=== PATIENT | female | born 1985 | race Caucasian/White ===

== ENCOUNTER → 2017-11-09 | Day surgery (SDC) | payer BC ==
[~2017-11-09] VITALS: Ht 175.3 cm; Wt 80.0 kg
[~2017-11-09] MED LIST: CHLORHEXIDINE GLUCONATE 2 % 1 PACK (2 CLOTHS) TOPICAL PRN; DEXAMETHASONE SOD PHOS 4 MG/ML VIAL IV ONE; DO NOT ADM ANY ANTICOAGULANT DRUGS PRN; INSULIN HUMAN REGULAR 1,000 UNITS/10 ML VIAL SQ PRN; LACTATED RINGER'S 1000 ML INJ 1,000 ML IV ONE; LEVO200T4 PO; LIDOCAINE HCL 1% PF 5 ML SYRINGE OTHER ONE; LIOT5TAB3 PO; METOPROLOL TARTRATE 25 MG TAB PO PRN; ONDANSETRON HCL 4 MG/2 ML VIAL IV ONE; PERC5TAB12 PO; POVIDONE IODINE 5% (ANTISEPSIS KIT) 4 APPLICATIONS EACH NARE PRN; PROPOFOL 200 MG/20 ML AMP IV ONE; SODIUM CHLORID 0.9% 500 ML IV PRN; SUCCINYLCHOLINE CHLORIDE 100 MG/5 ML SYRINGE IV PUSH ONE; VALT500T PO
[2017-11-09] MEDS: LACTATED RINGER'S 1000 ML IV PRN ×2 (09:55→11:25)
[2017-11-09 10:28] LABS: AUTOMATED NEUTROPHIL # 6.7 TH/MM3 (1.8-7.7); BASOPHIL # 0.1 TH/MM3 (0-0.2); BASOPHIL % 0.6 % (0.0-2.0); EOSINOPHIL # 0.1 TH/MM3 (0-0.4); EOSINOPHIL % 0.9 % (0.0-4.0); HEMATOCRIT 30.6 % (35.0-46.0); HEMOGLOBIN 10.5 GM/DL (11.6-15.3); LYMPHOCYTE # 1.2 TH/MM3 (1.0-4.8); MEAN CELL VOLUME 85.4 FL (80.0-100.0); MEAN CORPUSCULAR HEMOGLOBIN 29.1 PG (27.0-34.0); MEAN CORPUSCULAR HGB CONC 34.1 % (32.0-36.0); MEAN PLATELET VOLUME 9.1 FL (7.0-11.0); MONO % 4.3 % (0.0-8.0); MONOCYTE # 0.4 TH/MM3 (0-0.9); NEUT % 80.2 % (16.0-70.0); PLATELET COUNT 155 TH/MM3 (150-450); RED BLOOD COUNT 3.59 MIL/MM3 (4.00-5.30); RED CELL DISTRIBUTION WIDTH 13.7 % (11.6-17.2); WHITE BLOOD COUNT 8.3 TH/MM3 (4.0-11.0)
--- NOTE | 2017-11-09 13:09 | PD.OP ---
Operative Report Date of Surgery: Nov 09, 2017 Preoperative Diagnosis: (1) Incomplete Postoperative Diagnosis: (1) Incomplete Procedure: d&c with suction Anesthesia: general Surgeon: Desmond Kenyon Screener And Blender(s): Desmond Mauricio MD Nov 09, 2017 13:09
--- NOTE | 2017-11-09 13:12 | HHI.DCPOC ---
Discharge Care Plan Diagnosis: (1) Incomplete Report Symptoms to Your Doctor -Temperature above 100.5 degrees -Redness, of incision or excessive or foul smelling drainage -Unusual pain or calf pain -Increased vaginal bleeding -Painful or difficulty urinating -Feelings of extreme sadness or anxiety after 2 weeks Goals to Promote Your Health * To prevent worsening of your condition and complications * To maintain your health at the optimal level Directions to Meet Your Goals Take your medications as prescribed Follow your dietary instruction Follow activity as directed Ensure plenty of rest for recovery Drink fluids for hydration Keep your appointments as scheduled Take your immunizations and boosters as scheduled If your symptoms worsen call your PCP, if no PCP go to Urgent Care Center or Emergency Room Smoking is Dangerous to Your Health. Avoid second hand smoke Call the 24-hour crisis hotline for domestic abuse at Desmond Kenyon MD Nov 09, 2017 13:12
[2017-11-09 13:24] LABS: HEMOGLOBIN 8.1 GM/DL (11.6-15.3)
--- NOTE | 2017-11-09 13:28 | MP ---
cc: Desmond Kenyon MD DATE OF OPERATION: 11/09/2017 DATE OF PROCEDURE: Dilatation and curettage with suction curette. PREOPERATIVE DIAGNOSIS: Incomplete . POSTOPERATIVE DIAGNOSIS: Incomplete . SURGEON: Desmond Kenyon MD ESTIMATED BLOOD LOSS: Less than 30 mL. COMPLICATIONS: None. ANESTHESIA: General. SPECIMENS: Products of conception. PROCEDURE IN DETAIL: After informed consent, patient was taken to the operating room, where she was placed under general anesthesia, placed in supine position, legs in the candy cane stirrups. Abdomen was prepped and draped in normal sterile fashion. Bladder was drained with a red Schaefer catheter. After timeout was taken for the procedure and everyone agreed, a speculum was placed in the vagina. There was a lot of clot and products of conception coming through the os, which was open about 2 cm. We removed that clot and some of the debris and products of conception. Then, a suction curette was passed through the fundus where a significant amount of products of conception was evacuated. A sharp curette was passed in all 4 quadrants until all the products of conception were off the uterine wall, and the suction curette was passed one last time. There was no active bleeding. The tenaculum was removed from the 12 o'clock portion of the cervix. The patient tolerated the procedure well. She was extubated and taken to the recovery room in stable condition. Lap and instrument counts were correct. Desmond Kenyon MD JWM/SB , 01:15 PM , 01:28 PM
--- NOTE | 2017-11-09 13:35 | MH ---
cc: Desmond Kenyon MD DATE OF ADMISSION: 11/09/2017 HISTORY OF PRESENT ILLNESS: This 32-year-old 2, para 1, who came in for an OB visit last week, was supposed to be 11 weeks, was found to have an 8-week fetus with no cardiac activity. The patient went out of town this weekend, came back on Thursday, had a large amount of bleeding and clots. She passed that and bleeding and clots discontinued. The patient called me. She was instructed to come in early in the morning for her visit. The patient did not call again, but continued to have heavy bleeding and cramping over the night, had some syncopal episodes x 4 at home. She showed up in the office pale, pulse was 100, blood pressure was 90/50. The patient was immediately sent to the hospital for IV hydration and a CBC. CBC revealed a hemoglobin of 10. We proceeded with a 12:00 D and C. PAST MEDICAL HISTORY: None. PAST SURGICAL HISTORY: She had a cone biopsy and a vaginal . MEDICATIONS: Levothyroxine. ALLERGIES: NONE. GYNECOLOGIC HISTORY: Significant for HSV. REVIEW OF SYSTEMS: Only significant for this syncopal episode along with heavy vaginal bleeding. PHYSICAL EXAMINATION: VITAL SIGNS: Stable and afebrile. NECK: Thyroid palpates normally. HEART: Regular rate and rhythm without murmur or gallop. LUNGS: Clear to auscultation bilaterally. ABDOMEN: Soft, nontender, nondistended. Uterus is 8-week size. PELVIC: Os was open. Products of conception were being prolapsed through the cervix. LOWER EXTREMITIES: No edema. IMPRESSION: At this time, is incomplete . The patient had syncopal episodes. The patient will undergo dilatation and curettage with suction. She is aware risks, benefits and alternatives, did sign consent. MD JESSIKA Sosa/EVA , 01:18 PM , 01:35 PM
[2017-11-09 15:11] VITALS: BP 102/65; PULSE 72; RESP 18; TEMP 97.4; O2SAT 100
== END | disposition home or self-care (01) ==
LOC: HSDC 09:21
PROVIDERS: ATTEND Obstetrics & Gynecology
DX: O02.1 Missed abortion (principal); Z3A.11 11 weeks gestation of pregnancy
CPT/HCPCS: 01965; 59820; 85014; 85018; 85025; 86850; 86900; 86901; 88305; J0330; J1100; J2405; J3010; J7120

== ENCOUNTER 2018-06-09 19:53 | Inpatient (IN) ==
[2018-06-09] MEDS ORDERED: Morphine Inj 4 MG/ML Vial IV.PUSH PRN (21:56)
[2018-06-09] MEDS ORDERED: Acetaminophen 325 MG Tablet PO PRN (21:56)
[2018-06-09] MEDS ORDERED: LORazepam 1 MG Tablet PO PRN (21:56)
[2018-06-09] MEDS ORDERED: Zolpidem Tartrate 5 MG Tablet PO PRN (22:04)
--- NOTE | 2018-06-09 22:16 | P.HPOB ---
History of Present Illness Service: 16 week loss Primary Care Physician: No Primary Care Physician Chief Complaint: 16 week loss History of Present Illness: 32 yo who came to the office at 16 weeks and she had US that revealed 16 week fetus without cardiac activity. 5 days later she came with her and once again US revealed same thing.Patient has no bleeding or cramps. she has consented for misoprostol induction and is aware of risk of D&C Weeks Gestation:: 16 Total # of Miscarriage(s): 1 Total # of Abortions (Spontaneous & Elective): 0 - Inpatient Certification I certify that the inpatient services were ordered in accordance with Medicare regulations governing the order. This includes certification that hospital inpatient services are reasonable and necessary and in the case of services not specified as inpatient-only under 42 CFR 419.22(n), that they are appropriately provided as inpatient services in accordance to with the 2-midnight benchmark under 43 CFR 412.3(e) Estimated Total Length of Stay (Days): 2 Plans for Post Hospital Care: Home Review of Systems All other systems reviewed negative except as stated in HPI PMFSH - History History Provided By: Patient - Medical / Surgical Hx Neg / Unobtainable Medical Problems Denied: Yes Surgical History: No Previous Surgery (D&C for miscarriage 7 months ago) - Social History I have reviewed the patient's Social History: Yes - Tobacco History Second Hand Smoke Exposure: No Tobacco Use In Past 30 Days: No Smoking Status: Never smoker Medications and Allergies Active Medications: Active Medications Acetaminophen (Tylenol) 650 mg PO Q4H PRN PRN Reason: FEVER Lactated Ringer's (Lr 1000 Ml Inj) 1,000 mls @ 125 mls/hr IV.CONT .Q8H ALLEN Stop: 06/10/18 05:59 Lorazepam (Ativan) 1 mg PO TID PRN PRN Reason: ANXIETY Misoprostol (Cytotec) 400 mcg VAGINAL Q4H ALLEN Stop: 06/11/18 02:01 Morphine Sulfate (Morphine Inj) 2 mg IV.PUSH Q2H PRN PRN Reason: Pain Scale 1 - 4 Ondansetron HCl (Zofran Odt) 4 mg PO Q6H PRN PRN Reason: NAUSEA OR VOMITING Sodium Chloride (Ns Flush) 2 ml IV.FLUSH BID ALLEN Sodium Chloride (Ns Flush) 2 ml IV.FLUSH UNSCH PRN PRN Reason: FLUSH AFTER USING IV ACCESS Zolpidem Tartrate (Ambien) 5 mg PO ONCE PRN PRN Reason: INSOMNIA Allergies Allergy/AdvReac Type Severity Reaction Status Date / Time No Known Allergies Allergy Uncoded 11/22/13 11:39 Exam Vital signs: Intake & Output 06/09/18 06/09/18 06/10/18 06:59 18:59 06:59 Weight 81.647 kg - Constitutional no acute distress - Routine HEENT Exam Head: Present: normocephalic - Routine Neck Exam Present: full ROM - Routine Respiratory Exam Present: CTA bilaterally - Routine Cardiovascular Exam Present: RRR - Routine Abdominal Exam Present: soft, normoactive bowel sounds - Routine Exam Patient deferred: external exam Perineum Description: Intact - Routine Extremities Exam Present: full ROM - Routine Skin Exam Present: intact - Routine Neurological Exam Present: alert, oriented X3 - Additional findings Additional findings: cervix is closed Caprini VTE Risk Assessment Caprini VTE Risk Assessment: No/Low Risk (score <= 1) Caprini Risk Assessment Model: Point Value = 1 Point Value = 2 Point Value = 3 Point Value = 5 Age 41-60 Minor surgery BMI > 25 kg/m2 Swollen legs Varicose veins or History of unexplained or recurrent spontaneous Oral contraceptives or hormone replacement Sepsis (< 1 month) Serious lung disease, including pneumonia (< 1 month) Abnormal pulmonary function Acute myocardial infarction Congestive heart failure (< 1 month) History of inflammatory bowel disease Medical patient at bed rest Age 61-74 Arthroscopic surgery Major open surgery (> 45 min) Laparoscopic surgery (> 45 min) Malignancy Confined to bed (> 72 hours) Immobilizing plaster cast Central venous access Age >= 75 History of VTE Family history of VTE Factor V Leiden Prothrombin [id number] Lupus anticoagulant Anticardiolipin antibodies Elevated serum homocysteine Heparin-induced thrombocytopenia Other congenital or acquired thrombophilia Stroke (< 1 month) Elective arthroplasty Hip, pelvis, or leg fracture Acute spinal cord injury (< 1 month) Prophylaxis Regimen: Total Risk Factor Score Risk Level Prophylaxis Regimen 0-1 Low Early ambulation 2 Moderate Order ONE of the following: *Sequential Compression Device (SCD) *Heparin 5000 units SQ BID 3-4 Higher Order ONE of the following medications: *Heparin 5000 units SQ TID *Enoxaparin/Lovenox 40 mg SQ daily (WT < 150 kg, CrCl > 30 mL/min) *Enoxaparin/Lovenox 30 mg SQ daily (WT < 150 kg, CrCl > 10-29 mL/min) *Enoxaparin/Lovenox 30 mg SQ BID (WT < 150 kg, CrCl > 30 mL/min) AND/OR *Sequential Compression Device (SCD) 5 or more Highest Order ONE of the following medications: *Heparin 5000 units SQ TID (Preferred with Epidurals) *Enoxaparin/Lovenox 40 mg SQ daily (WT < 150 kg, CrCl > 30 mL/min) *Enoxaparin/Lovenox 30 mg SQ daily (WT < 150 kg, CrCl > 10-29 mL/min) *Enoxaparin/Lovenox 30 mg SQ BID (WT < 150 kg, CrCl > 30 mL/min) AND *Sequential Compression Device (SCD) Assessment and Plan - Diagnosis (1) Second trimester Code(s): Z33.2 - Encounter for elective termination of Status: Acute - Plan misoprostol induction
[2018-06-09] MEDS ORDERED: miSOPROStol 200 MCG Tablet ONE (22:26)
[2018-06-09 22:37] LABS: Baso % (Auto) 0.4 % (0.0-2.0); Eos # (Auto) 0.3 th/mm3 (0.0-0.4); Eos % (Auto) 4.2 % (0.0-4.0); Hemoglobin 10.7 gm/dL (11.6-15.3); Lymph # (Auto) 1.7 th/mm3 (1.0-4.8); Lymph % (Auto) 25.9 % (9.0-44.0); Mean Corpuscular HGB Conc 33.5 % (32.0-36.0); Mean Corpuscular Hemoglobin 24.3 pg (27.0-34.0); Mean Corpuscular Volume 72.6 fL (80.0-100.0); Mean Platelet Volume 9.8 fL (7.0-11.0); Mono # (Auto) 0.3 th/mm3 (0.0-0.9); Mono % (Auto) 4.7 % (0.0-8.0); Neut # (Auto) 4.3 th/mm3 (1.8-7.7); Neut % (Auto) 64.8 % (16.0-70.0); Platelet Count 148 th/mm3 (150-450); Red Blood Count 4.41 mil/mm3 (4.00-5.30); Red Cell Distribution Width 19.1 % (11.6-17.2); White Blood Count 6.7 th/mm3 (4.0-11.0)
[2018-06-10 01:53] LABS: Amphetamine Urine With Conf Neg (Neg); Benzodiazepine Urine With Conf Neg (Neg); Bilirubin,Urine Negative (Negative); Clarity,Urine Hazy (Clear); Cocaine Urine With Conf Neg (Neg); Color,Urine Yellow (Yellw/Straw); Glucose,Urine (UA) Negative (Negative); Hyaline Casts,Urine 1 /lpf (0-3); Leukocyte Esterase,Urine Trace (Negative); Mucus,Urine Few /lpf (Occasional); Nitrite,Urine Negative (Negative); Opiates Urine With Conf Neg (Neg); Specific Gravity,Urine 1.028 (1.002-1.035); Squamous Epithelial Cell,Urine 6 /hpf (0-5)
[2018-06-10 01:55] LABS: Cannabinoid Urine With Conf Neg (Neg)
[2018-06-10] MEDS ORDERED: miSOPROStol 200 MCG Tablet ONE (02:16)
[2018-06-10] MEDS ORDERED: Oxytocin 30 Units/500ml Premix 30 UNITS/500 ML BAG ONE ×2 (06:27→07:58)
--- NOTE | 2018-06-10 09:32 | P.OP ---
- Preoperative Diagnosis (1) Retained placenta with hemorrhage Date of procedure: 06/10/18 Procedure: dilatation and curettage Anesthesia: ZANA Surgeon: Desmond Kenyon MD Estimated blood loss (mL): 400 Pathology: other (placenta)
[2018-06-10] MEDS ORDERED: Acetaminophen 325 MG Tablet PO PRN (09:39)
[2018-06-10] MEDS ORDERED: Oxytocin 30 Units/500ml Premix 30 UNITS/500 ML BAG IV.CONT PRN (09:39)
[2018-06-10] MEDS ORDERED: Naloxone Inj 0.4 MG/ML Vial IV.PUSH PRN (09:39)
[2018-06-10] MEDS ORDERED: fentaNYL Citrate Inj 100 MCG/2 ML Ampul ONE (09:43)
[2018-06-10 09:51] LABS: Hematocrit 21.9 % (35.0-46.0); Hemoglobin 7.3 gm/dL (11.6-15.3); Mean Corpuscular HGB Conc 33.4 % (32.0-36.0); Mean Corpuscular Hemoglobin 24.8 pg (27.0-34.0); Mean Corpuscular Volume 74.3 fL (80.0-100.0); Mean Platelet Volume 9.1 fL (7.0-11.0); Platelet Count 128 th/mm3 (150-450); Red Blood Count 2.95 mil/mm3 (4.00-5.30); White Blood Count 9.1 th/mm3 (4.0-11.0)
[2018-06-10 10:02] VITALS: TEMP 98; O2SAT 100
--- NOTE | 2018-06-10 10:08 | MP ---
cc: Desmond Kenyon MD DATE OF OPERATION: 06/10/2018 PROCEDURE: Dilation and curettage. PREOPERATIVE DIAGNOSIS: Retained placenta of 16-week fetus. POSTOPERATIVE DIAGNOSES: Retained placenta of 16-week fetus including with hemorrhage. ESTIMATED BLOOD LOSS: 400 mL. SURGEON: Desmond Kenyon MD. ANESTHESIA: Dr. Gunn, general anesthesia. COMPLICATIONS: None. PATHOLOGY SPECIMENS: Included placenta of 16-week fetus. OTHER FACTOR: A patient had stat CBC sent during her surgery intraoperatively and patient was typed and crossed for 2 units. PROCEDURE IN DETAIL: After informed consent, the patient was taken to the operating room where she was placed under general anesthesia, placed in candy cane stirrups. Perineum and vagina were prepped and draped in normal sterile fashion. After adequate anesthesia was assured and the patient was asleep, a speculum was placed in vagina. The cervix was grasped with a single-tooth tenaculum. Cervix was already open after passing a 16-week fetus. Placenta was at the os. It was grasped with a ring forceps, but would not deliver. It had to be sharply curetted off of posterior wall and the right side of the uterus. All placenta was removed. A large curette was passed in all 4 quadrants until there was no remaining placenta left on the wall. Bleeding slowed tremendously and the curette was stopped. With bimanual massage, the uterus clamped down well. Pitocin was started. The cervix was reinspected where the tenaculum had been. There was no active bleeding. There was no active bleeding, just slight ooze from the os, but no significant heavy bleeding that had been occurring. Placenta was completely removed. Procedure was ended. All instruments were removed from the vagina. All laps and instruments were counted as correct. The specimen will be placenta. The patient will come to the recovery room and then back to labor and delivery. Desmond Kenyon MD JWM/geneva , 09:36 AM , 09:42 AM
[2018-06-10 10:32] VITALS: BP 113/68; PULSE 71
[2018-06-10 10:41] VITALS: RESP 16
--- NOTE | 2018-06-10 14:11 | P.HPIM ---
History of Present Illness Primary Care Physician: No Primary Care Physician History of Present Illness: 32 yo who came to the office at 16 weeks and she had US that revealed 16 week fetus without cardiac activity. 5 days later she came with her and once again US revealed same thing.Patient has no bleeding or cramps. she has consented for misoprostol induction and is aware of risk of D&C Diagnosis (1) Second trimester : Inpatient Certification Inpatient Certification: I certify that the inpatient services were ordered in accordance with Medicare regulations governing the order. This includes certification that hospital inpatient services are reasonable and necessary and in the case of services not specified as inpatient-only under 42 CFR 419.22(n), that they are appropriately provided as inpatient services in accordance to with the 2-midnight benchmark under 43 CFR 412.3(e) Estimated Total Length of Stay (Days): 2 Plans for Post Hospital Care: Home [facility] Social History Social History Second Hand Smoke Exposure: No Smoking Status: Never smoker Medications and Allergies Allergies Allergy/AdvReac Type Severity Reaction Status Date / Time cinnamon Allergy Severe Hives Verified 06/10/18 00:11 Home Medications Medication Instructions Recorded Confirmed Type PNV cmb#95-ferrous fumarate-FA 1 tab PO DAILY 06/10/18 06/10/18 History [] levothyroxine 225 mcg PO DAILY 06/10/18 06/10/18 History liothyronine 5 mcg PO DAILY 06/10/18 06/10/18 History Active Medications: Active Medications Acetaminophen (Tylenol) 650 mg PO Q4H PRN PRN Reason: FEVER Acetaminophen (Tylenol) 650 mg PO Q4H PRN PRN Reason: PAIN SCALE 1 TO 2 Diphtheria/Pertussis/Tetanus Vacc (Boostrix Vaccine Inj) 0.5 ml IM .ONCE ONE Stop: 06/10/18 16:01 Oxytocin (Pitocin 30 Units/Ns 500 Ml Premix) 30 units in 500 mls @ 100 mls/hr IV.CONT UNSCH PRN PRN Reason: Heavy bleeding Ibuprofen (Motrin) 800 mg PO Q8H PRN PRN Reason: For Cramping Liothyronine Sodium (Cytomel) 5 mcg PO DAILY@0600 ALLEN Lorazepam (Ativan) 1 mg PO TID PRN PRN Reason: ANXIETY Measles/Mumps/Rubella Vaccine Live (M-M-R Ii Vaccine Inj) 0.5 ml SQ .ONCE ONE Stop: 06/10/18 16:01 Miscellaneous Information ([facility] [place] [facility]) 0 each OTHER UNSCH PRN PRN Reason: SEE LABEL COMMENTS Stop: 06/11/18 10:38 Misoprostol (Cytotec) 400 mcg VAGINAL Q4H ALLEN Stop: 06/11/18 02:01 Morphine Sulfate (Morphine Inj) 2 mg IV.PUSH Q2H PRN PRN Reason: Pain Scale 1 - 4 Naloxone HCl (Narcan Inj) 0.1 mg IV.PUSH Q2M PRN PRN Reason: for opiate reversal Ondansetron HCl (Zofran Odt) 4 mg PO Q6H PRN PRN Reason: NAUSEA OR VOMITING Ondansetron HCl (Zofran Odt) 4 mg PO Q6H PRN PRN Reason: NAUSEA OR VOMITING Sodium Chloride (Ns Flush) 2 ml IV.FLUSH BID [facility] Last Admin: 06/10/18 11:36 Dose: Not Given Sodium Chloride (Ns Flush) 2 ml IV.FLUSH UNSCH PRN PRN Reason: FLUSH AFTER USING IV ACCESS Sodium Chloride (Ns Flush) 2 ml IV.FLUSH BID [facility] Sodium Chloride (Ns Flush) 2 ml IV.FLUSH PRN PRN PRN Reason: FLUSH AFTER USING IV ACCESS Zolpidem Tartrate (Ambien) 5 mg PO ONCE PRN PRN Reason: INSOMNIA Physical Exam Vital signs: Last Vital Signs Temp 98.0 F 06/10/18 10:24 Pulse 71 06/10/18 10:24 Resp 16 06/10/18 10:45 BP 113/68 06/10/18 10:24 Pulse Ox 100 06/10/18 10:00 Intake & Output 06/08/18 06/09/18 06/10/18 06/11/18 06:59 06:59 06:59 06:59 Intake Total 1000 / 1000 950 / 950 Output Total 200 / 200 Balance 1000 / 1000 750 / 750 Weight 81.647 kg Results Labs CBC & Chem 7: 06/10/18 09:15 Labs: Laboratory Tests 06/09/18 06/10/18 20:40 09:15 MCV 72.6 L 74.3 L Caprini VTE Risk Assessment Caprini VTE Risk Assessment: No/Low Risk (score <= 1) Caprini Risk Assessment Model: Point Value = 1 Point Value = 2 Point Value = 3 Point Value = 5 Age 41-60 Minor surgery BMI > 25 kg/m2 Swollen legs Varicose veins or History of unexplained or recurrent spontaneous Oral contraceptives or hormone replacement Sepsis (< 1 month) Serious lung disease, including pneumonia (< 1 month) Abnormal pulmonary function Acute myocardial infarction Congestive heart failure (< 1 month) History of inflammatory bowel disease Medical patient at bed rest Age 61-74 Arthroscopic surgery Major open surgery (> 45 min) Laparoscopic surgery (> 45 min) Malignancy Confined to bed (> 72 hours) Immobilizing plaster cast Central venous access Age >= 75 History of VTE Family history of VTE Factor V Leiden Prothrombin [id number] Lupus anticoagulant Anticardiolipin antibodies Elevated serum homocysteine Heparin-induced thrombocytopenia Other congenital or acquired thrombophilia Stroke (< 1 month) Elective arthroplasty Hip, pelvis, or leg fracture Acute spinal cord injury (< 1 month) Prophylaxis Regimen: Total Risk Factor Score Risk Level Prophylaxis Regimen 0-1 Low Early ambulation 2 Moderate Order ONE of the following: *Sequential Compression Device (SCD) *Heparin 5000 units SQ BID 3-4 Higher Order ONE of the following medications: *Heparin 5000 units SQ TID *Enoxaparin/Lovenox 40 mg SQ daily (WT < 150 kg, CrCl > 30 mL/min) *Enoxaparin/Lovenox 30 mg SQ daily (WT < 150 kg, CrCl > 10-29 mL/min) *Enoxaparin/Lovenox 30 mg SQ BID (WT < 150 kg, CrCl > 30 mL/min) AND/OR *Sequential Compression Device (SCD) 5 or more Highest Order ONE of the following medications: *Heparin 5000 units SQ TID (Preferred with Epidurals) *Enoxaparin/Lovenox 40 mg SQ daily (WT < 150 kg, CrCl > 30 mL/min) *Enoxaparin/Lovenox 30 mg SQ daily (WT < 150 kg, CrCl > 10-29 mL/min) *Enoxaparin/Lovenox 30 mg SQ BID (WT < 150 kg, CrCl > 30 mL/min) AND *Sequential Compression Device (SCD) Assessment and Plan (1) Second trimester : Code(s): Z33.2 - Encounter for elective termination of Status: Acute
[2018-06-10] MEDS ORDERED: Diphtheria/Tetanus/Pertussis Vaccine Inj 0.5 ML Syringe IM ONE (16:00)
[2018-06-10] MEDS ORDERED: Measles/Mumps/Rubella Vaccine Inj 0.5 ML Vial SQ ONE (16:00)
--- NOTE | 2018-06-10 17:56 | P.PNOB ---
Progress Note: A/P (1) Second trimester Status: Acute Code(s): Z33.2 - Encounter for elective termination of Current Visit: Yes (2) Retained placenta with hemorrhage Status: Acute Code(s): O72.0 - Third-stage hemorrhage Current Visit: Yes - Plan dc home now - Time Spent With Patient Total time spent is greater than 50% in coordination of care (as documented) at patient's floor/unit and/or counseling patient: 25 - 35 minutes Subjective Interval history: 32 yo patient had hemorrhage and retained placenta. she needed D&C for retained placenta after 16 week loss. She has light bleeding and has been up and ambulating with little dizziness Physical Exam Vital signs: Temp Pulse Resp BP Pulse Ox 98.0 F 71 16 113/68 100 06/10/18 10:24 06/10/18 10:24 06/10/18 10:45 06/10/18 10:24 06/10/18 10:00 - Constitutional no acute distress - Routine Abdominal Exam Present: soft, normoactive bowel sounds - Additional findings minimal bleeding Results - Labs CBC & Chem 7: 06/10/18 09:15 Labs: Laboratory Results - last 24 hr 06/09/18 06/09/18 06/09/18 20:20 20:20 20:40 WBC 6.7 RBC 4.41 Hgb 10.7 L Hct 32.0 L MCV 72.6 L MCH 24.3 L MCHC 33.5 RDW 19.1 H Plt Count 148 L MPV 9.8 Neut % (Auto) 64.8 Lymph % (Auto) 25.9 Dixon % (Auto) 4.7 Eos % (Auto) 4.2 H Baso % (Auto) 0.4 Neut # (Auto) 4.3 Lymph # (Auto) 1.7 Dixon # (Auto) 0.3 Eos # (Auto) 0.3 Baso # (Auto) 0.0 WBC Differential . Differential Comment Auto diff final Urine Color Yellow Urine Clarity Hazy H Urine pH 5.0 Ur Specific [place] 1.028 Urine Protein Negative Urine Glucose (UA) Negative Urine Ketones Negative Urine Occult Blood Negative Urine Nitrate Negative Urine Bilirubin Negative Urine Urobilinogen Less than 2 Ur Leukocyte Esterase Trace H Urine RBC 2 Urine WBC 7 H Ur Squamous Epith Cells 6 Hyaline Casts 1 Urine Mucus Few H Micro UA Comment Culture not ind Ur Microscopic Review Not Reportable Urine Culture Comments Culture not ind Urine Opiates Screen Neg Ur Barbiturates Screen Neg Ur Amphetamine Screen Neg U Benzodiazepines Scrn Neg Urine Cocaine Screen Neg U Cannabinoids Screen Neg Blood Type Blood Type Recheck Antibody Screen Ab Screen Tube Method MTS Gel Crossmatch Blood Bank Comment 06/09/18 06/10/18 06/10/18 20:40 08:57 09:15 WBC 9.1 RBC 2.95 L Hgb 7.3 L D Hct 21.9 L MCV 74.3 L MCH 24.8 L MCHC 33.4 RDW 19.0 H Plt Count 128 L MPV 9.1 Neut % (Auto) Lymph % (Auto) Dixon % (Auto) Eos % (Auto) Baso % (Auto) Neut # (Auto) Lymph # (Auto) Dixon # (Auto) Eos # (Auto) Baso # (Auto) WBC Differential Differential Comment Urine Color Urine Clarity Urine pH Ur Specific [place] Urine Protein Urine Glucose (UA) Urine Ketones Urine Occult Blood Urine Nitrate Urine Bilirubin Urine Urobilinogen Ur Leukocyte Esterase Urine RBC Urine WBC Ur Squamous Epith Cells Hyaline Casts Urine Mucus Micro UA Comment Ur Microscopic Review Urine Culture Comments Urine Opiates Screen Ur Barbiturates Screen Ur Amphetamine Screen U Benzodiazepines Scrn Urine Cocaine Screen U Cannabinoids Screen Blood Type O Negative Blood Type Recheck Not needed Antibody Screen Negative Ab Screen Tube Method MTS Gel Crossmatch See Detail Blood Bank Comment 06/10/18 11:45 WBC RBC Hgb Hct MCV MCH MCHC RDW Plt Count MPV Neut % (Auto) Lymph % (Auto) Dixon % (Auto) Eos % (Auto) Baso % (Auto) Neut # (Auto) Lymph # (Auto) Dixon # (Auto) Eos # (Auto) Baso # (Auto) WBC Differential Differential Comment Urine Color Urine Clarity Urine pH Ur Specific [place] Urine Protein Urine Glucose (UA) Urine Ketones Urine Occult Blood Urine Nitrate Urine Bilirubin Urine Urobilinogen Ur Leukocyte Esterase Urine RBC Urine WBC Ur Squamous Epith Cells Hyaline Casts Urine Mucus Micro UA Comment Ur Microscopic Review Urine Culture Comments Urine Opiates Screen Ur Barbiturates Screen Ur Amphetamine Screen U Benzodiazepines Scrn Urine Cocaine Screen U Cannabinoids Screen Blood Type O Negative Blood Type Recheck Antibody Screen Ab Screen Tube Method Negative MTS Gel Crossmatch Blood Bank Comment
--- NOTE | 2018-06-10 18:02 | P.DS ---
Date of admission: 06/09/18 19:53 Primary care physician: No Primary Care Physician Brief History from admission: 32 yo who came to the office at 16 weeks and she had US that revealed 16 week fetus without cardiac activity. 5 days later she came with her and once again US revealed same thing.Patient has no bleeding or cramps. she has consented for misoprostol induction and is aware of risk of D&C DS: Diagnosis - Discharge Diagnosis (1) Second trimester Status: Acute (2) Retained placenta with hemorrhage Status: Acute DS: Summary Hospital Course: Patient came 06/09 for cytotec induction and passed the demise at 16 weeks and retained placenta with hemorrhage. Required D&C - Time Spent with Patient Total time spent providing and/or coordinating discharge services: Greater than 30 minutes Exam Vital signs: Vital Signs 06/09/18 23:21 06/10/18 02:09 06/10/18 02:10 Temperature 98.9 F Pulse Rate 61 66 Respiratory Rate 18 18 Blood Pressure 133/86 140/96 H Pulse Oximetry 06/10/18 06:17 06/10/18 06:45 06/10/18 06:54 Temperature Pulse Rate 70 81 Respiratory Rate 18 Blood Pressure 114/72 125/82 Pulse Oximetry 06/10/18 07:27 06/10/18 08:00 06/10/18 08:30 Temperature 99.0 F Pulse Rate 69 87 Respiratory Rate Blood Pressure 116/80 117/79 Pulse Oximetry 06/10/18 09:28 06/10/18 09:30 06/10/18 09:45 Temperature 98.0 F Pulse Rate 112 H 109 H 88 Respiratory Rate 14 14 15 Blood Pressure 131/78 123/82 117/74 Pulse Oximetry 100 100 100 06/10/18 10:00 06/10/18 10:24 06/10/18 10:45 Temperature 98.1 F 98.0 F Pulse Rate 77 71 Respiratory Rate 16 16 Blood Pressure 109/68 113/68 Pulse Oximetry 100 Intake & Output 06/09/18 06/10/18 06/10/18 18:59 06:59 18:59 Intake Total 1000 / 1000 951 / 951 Output Total 200 / 200 Balance 1000 / 1000 751 / 751 Weight 81.647 kg Intake: IV 1000 / 1000 LR 1000 mL Inj 1,000 ML @ 125 1000 / 1000 mls/hr IV.CONT .Q8H [facility] Rx#: [id number] Anesthesia Amount 950 / 950 Intake (Blood Product) Amt Rho(D) Immune Globulin Unit [id number] Output: Estimated Blood Loss 200 / 200 - Constitutional no acute distress Results Procedures completed during hospitalization: D&C Pending studies at discharge: Pending at discharge 06/10/18 11:26 Surgical [PTH] Routine Labs on day of discharge: Labs from last 24 hours 06/10/18 06/10/18 06/10/18 11:45 11:26 09:15 WBC 9.1 RBC 2.95 L Hgb 7.3 L D Hct 21.9 L MCV 74.3 L MCH 24.8 L MCHC 33.4 RDW 19.0 H Plt Count 128 L MPV 9.1 Neut % (Auto) Lymph % (Auto) [place] % (Auto) Eos % (Auto) Baso % (Auto) Neut # (Auto) Lymph # (Auto) [place] # (Auto) Eos # (Auto) Baso # (Auto) WBC Differential Differential Comment Urine Color Urine Clarity Urine pH Ur Specific [place] Urine Protein Urine Glucose (UA) Urine Ketones Urine Occult Blood Urine Nitrate Urine Bilirubin Urine Urobilinogen Ur Leukocyte Esterase Urine RBC Urine WBC Ur Squamous Epith Cells Hyaline Casts Urine Mucus Micro UA Comment Ur Microscopic Review Urine Culture Comments Urine Opiates Screen Ur Buprenorphine Ur [place] Screen Urine Oxycodone Ur Methadone U Hydromorphone Confirm Urine Fentanyl Ur Barbiturates Screen Urine Gabapentin Ur Phencyclidine (PCP) Ur Amphetamine Screen Ur MDMA & Metabolites U Benzodiazepines Scrn Urine Cocaine Screen U Cannabinoids Screen Misc Test Result Pending Blood Type O Negative Blood Type Recheck Antibody Screen Ab Screen Tube Method Negative MTS Gel Crossmatch Blood Bank Comment 06/10/18 06/09/18 06/09/18 08:57 20:40 20:40 WBC 6.7 RBC 4.41 Hgb 10.7 L Hct 32.0 L MCV 72.6 L MCH 24.3 L MCHC 33.5 RDW 19.1 H Plt Count 148 L MPV 9.8 Neut % (Auto) 64.8 Lymph % (Auto) 25.9 [place] % (Auto) 4.7 Eos % (Auto) 4.2 H Baso % (Auto) 0.4 Neut # (Auto) 4.3 Lymph # (Auto) 1.7 [place] # (Auto) 0.3 Eos # (Auto) 0.3 Baso # (Auto) 0.0 WBC Differential . Differential Comment Auto diff final Urine Color Urine Clarity Urine pH Ur Specific [place] Urine Protein Urine Glucose (UA) Urine Ketones Urine Occult Blood Urine Nitrate Urine Bilirubin Urine Urobilinogen Ur Leukocyte Esterase Urine RBC Urine WBC Ur Squamous Epith Cells Hyaline Casts Urine Mucus Micro UA Comment Ur Microscopic Review Urine Culture Comments Urine Opiates Screen Ur Buprenorphine Ur [place] Screen Urine Oxycodone Ur Methadone U Hydromorphone Confirm Urine Fentanyl Ur Barbiturates Screen Urine Gabapentin Ur Phencyclidine (PCP) Ur Amphetamine Screen Ur MDMA & Metabolites U Benzodiazepines Scrn Urine Cocaine Screen U Cannabinoids Screen Misc Test Result Blood Type O Negative Blood Type Recheck Not needed Antibody Screen Negative Ab Screen Tube Method MTS Gel Crossmatch See Detail Blood Bank Comment 06/09/18 06/09/18 06/09/18 20:20 20:20 20:20 WBC RBC Hgb Hct MCV MCH MCHC RDW Plt Count MPV Neut % (Auto) Lymph % (Auto) [place] % (Auto) Eos % (Auto) Baso % (Auto) Neut # (Auto) Lymph # (Auto) [place] # (Auto) Eos # (Auto) Baso # (Auto) WBC Differential Differential Comment Urine Color Yellow Urine Clarity Hazy H Urine pH 5.0 Ur Specific [place] 1.028 Urine Protein Negative Urine Glucose (UA) Negative Urine Ketones Negative Urine Occult Blood Negative Urine Nitrate Negative Urine Bilirubin Negative Urine Urobilinogen Less than 2 Ur Leukocyte Esterase Trace H Urine RBC 2 Urine WBC 7 H Ur Squamous Epith Cells 6 Hyaline Casts 1 Urine Mucus Few H Micro UA Comment Culture not ind Ur Microscopic Review Not Reportable Urine Culture Comments Culture not ind Urine Opiates Screen Neg Ur Buprenorphine Pending Ur [place] Screen Pending Urine Oxycodone Pending Ur Methadone Pending U Hydromorphone Confirm Pending Urine Fentanyl Pending Ur Barbiturates Screen Neg Urine Gabapentin Pending Ur Phencyclidine (PCP) Pending Ur Amphetamine Screen Neg Ur MDMA & Metabolites Pending U Benzodiazepines Scrn Neg Urine Cocaine Screen Neg U Cannabinoids Screen Neg Misc Test Result Blood Type Blood Type Recheck Antibody Screen Ab Screen Tube Method MTS Gel Crossmatch Blood Bank Comment Discharge Plan - Discharge Disposition Patient Disposition: 01 Discharge Home - Discharge Condition Condition: Good - Discharge Order Discharge Orders: Discharge Order (Routine); Ordered 06/10/18 Ordered By: Desmond Kenyon - Physicians Team Primary Care Provider: Primary Care Goldie Esrtada Attending Provider: Desmond Kenyon - Rxs /Orders / Referrals /Forms Prescriptions: No Action levothyroxine 225 mcg PO DAILY liothyronine 5 mcg Tablet 5 mcg PO DAILY PNV [id number] [] 28 mg iron- 800 mcg Tablet 1 tab PO DAILY Referrals: Desmond Kenyon MD [Physician] - See Instructions Primary Care Goldie Estrada [Primary Care Provider] - See Instructions - Discharge Instructions Patient Printed Instructions: Dilation and Curettage (DC) - Post Discharge Care Plan Care Plan Goals: Your Health Problems: Goals to Promote Your Health: * To prevent worsening of your condition * To maintain your health at the optimal level Directions to Meet Your Goals: * Take your medications as prescribed * Follow your dietary instruction * Follow activity as directed * Keep your appointments as scheduled * Take your immunizations and boosters as scheduled * If your symptoms worsen call your PCP * If no PCP go to Urgent Care or Emergency Room Smoking is dangerous to your health. Avoid second hand smoke. You may reach the 24-hour crisis hotline for domestic abuse at .
[2018-06-11] MEDS ORDERED: Liothyronine 5 MCG Tablet PO SCH (06:00)
== END 2018-06-10 18:31 | disposition home or self-care (01) ==
LOC: H2E 19:53
PROVIDERS: ADMIT Obstetrics & Gynecology; ATTEND Obstetrics & Gynecology